=== PATIENT | female | born 1985 | race Hispanic/Latino ===

== ENCOUNTER → 2016-03-05 | Outpatient (CLI) | payer OTHER ==
[~2016-03-05] MED LIST: ENDOCET 5-3251 EACH PO; ERGOCALCIF50000 UNIT PO; LABETALOL HCL100 MG PO; METHIMAZOLE5 MG PO; PRENATAL TABLE1 EAC3 PO; TAPAZOLE5 MG PO; VENTOLIN HFA18 GM IH
== END | disposition home or self-care (01) ==
LOC: CDC 14:29
DX: Z01.810 Encounter for preprocedural cardiovascular examination (principal); I49.9 Cardiac arrhythmia, unspecified; I45.9 Conduction disorder, unspecified; R00.2 Palpitations; O02.1 Missed abortion
CPT/HCPCS: 93000

== ENCOUNTER 2016-03-06 08:18 | Day surgery (SDC) | payer OTHER ==
[~2016-03-06] VITALS: Ht 170.2 cm; Wt 68.9 kg
[~2016-03-06 08:18] MED LIST changes: -ENDOCET 5-3251 EACH PO
[2016-03-06 08:51] VITALS: BP 119/67
[2016-03-06] MEDS ORDERED: ENDOCET 5-3251 EACH PO (10:51)
[2016-03-06 12:07] VITALS: BP 128/74
[2016-03-06 13:04] VITALS: BP 108/68
== END 2016-03-06 13:10 | disposition home or self-care (01) ==
LOC: SDC
PROC: 10D17ZZ Extraction of Products of Conception, Retained, Via Natural or Artificial Opening (ICD-10-PCS; principal; 2016-03-06)
DX: O02.1 Missed abortion (principal); E05.90 Thyrotoxicosis, unspecified without thyrotoxic crisis or storm; J45.909 Unspecified asthma, uncomplicated; G47.00 Insomnia, unspecified
CPT/HCPCS: 88305; J1050; J1100; J1170; J1885; J2250; J2405; J3010